=== PATIENT | male | born 1955 | race Caucasian/White ===

== ENCOUNTER → 2020-06-07 12:54 | Outpatient (BNVA) | payer OTHER, SELFPAY | PROVIDERS: Visit Provider Nurse Practitioner | DX: B34.9 Viral infection, unspecified (principal) | CPT/HCPCS: 86710; 87400 ==

== ENCOUNTER 2021-09-24 08:32 | Outpatient (CLI) | payer MEDICARE, SELFPAY ==
--- NOTE | 2021-09-24 09:35 | USCV_ITS ---
YoelJeffrey colon Age: 66 Gender: M : 1955 Exam Date: 09/24/2021 09:43 Ordering Phys: Fiordaliza Franks Technologist: NARCISO Exam Location: [facility] [place] Indication: Tobacco use disorder,mild HISTORY: Diameter (cm) AP x Transverse x Length Velocity (cm/s) Waveform Prox Aorta: 2.16 x 2.30 x 41.90 Mid Aorta: 2.07 x 2.30 x 97.80 Distal Aorta: 1.74 x 2.25 x 47.70 Right Iliac Prox: 0.72 x 1.08 x 82.60 Left Iliac Prox: 0.99 x 1.00 x 84.30 Stent Prox Landing x x Aneurysmal Sac Max x x Lt Lat Sac Dim Rt Lat Sac Dim Stent Dist Landing x x Right Iliac Stent x x Left Iliac Stent x x Right Renal Art Left Renal Art FINDINGS: Comparison: none available. No evidence of abdominal aortic aneurysm. Ectatic abdominal aorta with evidence of atherosclerotic plaque noted. Limited evaluation of aorta and iliac arteries by body habitus. CONCLUSIONS Ectatic abdominal aorta with evidence of atherosclerotic plaque noted. No AAA seen. Dr. Ni Nash DO (Electronically Signed) Final Date: 24 September 2021 12:44 S
== END 2021-09-24 08:33 | disposition home or self-care (01) ==
PROVIDERS: Visit Provider Family Medicine
DX: F17.201 Nicotine dependence, unspecified, in remission (principal); I77.811 Abdominal aortic ectasia
CPT/HCPCS: 93978

== ENCOUNTER → 2022-08-26 10:51 | Outpatient (BNVA) | payer MEDICARE, SELFPAY | PROVIDERS: Referring Provider Nurse Practitioner Family; Visit Provider Orthopaedic Surgery | DX: M48.062 Spinal stenosis, lumbar region with neurogenic claudication (principal); M43.17 Spondylolisthesis, lumbosacral region | CPT/HCPCS: 72110; 99204 ==